=== PATIENT | female | born 1945 | race Caucasian/White ===

== ENCOUNTER 2018-12-21 07:52 | Emergency (ER) | payer MEDICARE, MEDICAID ==
[2018-12-21 07:59] VITALS: O2SAT 97
[2018-12-21 08:00] VITALS: BMI 31.9
--- NOTE | 2018-12-21 09:00 | ED PDOC ---
HPI: Skin/Bite Injury Time Seen by Provider: 12/21/18 08:25 Chief Complaint (Nursing): Abnormal Skin Integrity Chief Complaint (Provider): Lipoma History Per: Patient, Jack[place]oo (DEBBIE Trauma Therapist # [id number]) History/Exam Limitations: no limitations Onset/Duration Of Symptoms: Other (one month ) Current Symptoms Are (Timing): Still Present Severity: None Additional Complaint(s): 73 year old female with HTN and sinusitis presents to the ED for an evaluation of a lipoma located behind the right ear closer to the scalp onset for one months. Currently, she denies any pain to the area. Also denies fever, chills, discharge from the ear or any other complaints. PMD: Dr. Valentine (Non [facility] Provider) Past Medical History Reviewed: Historical Data, Nursing Documentation, Vital Signs Vital Signs: Last Vital Signs Temp 97.8 F 12/21/18 07:58 Pulse 61 12/21/18 07:58 Resp 18 12/21/18 07:58 BP 187/81 H 12/21/18 07:58 Pulse Ox 97 12/21/18 07:58 - Medical History PMH: HTN Other PMH: sinusitis - Surgical History Surgical History: No Surg Hx - Family History Family History: States: Unknown Family Hx - Social History Current smoker - smoking cessation education provided: No Alcohol: None Drugs: Denies - Allergies Allergies/Adverse Reactions: Allergies Allergy/AdvReac Type Severity Reaction Status Date / Time Penicillins Allergy RASH Verified 12/21/18 08:14 Review of Systems ROS Statement: Except As Marked, All Systems Reviewed And Found Negative Constitutional: Negative for: Fever, Chills ENT: Negative for: Ear Pain, Ear Discharge Musculoskeletal: Negative for: Neck Pain Skin: Positive for: Other (lipoma) Neurological: Negative for: Headache Physical Exam - Reviewed Nursing Documentation Reviewed: Yes Vital Signs Reviewed: Yes - Physical Exam Appears: Positive for: Well, Non-toxic, No Acute Distress Head Exam: Positive for: ATRAUMATIC, NORMAL INSPECTION, NORMOCEPHALIC Skin: Positive for: Warm, Dry. Negative for: Normal Color (lipoma located behind the right ear closer to the scalp - no abscess noted, no cellulitis) Eye Exam: Positive for: Normal appearance, EOMI, PERRL Neurological/Psych: Positive for: Awake, Alert, Normal Tone, Oriented (x3) - ECG O2 Sat by Pulse Oximetry: 97 (RA) Pulse Ox Interpretation: Normal Medical Decision Making Medical Decision Making: Upon provider reevaluation patient is feeling better, is medically stable, and requires no further treatment in the ED at this time. Patient will be discharged home. Counseling was provided and all questions were answered regarding diagnosis and need for follow up with non linear editor, Dr New. There is agreement to discharge plan. Return if symptoms persist or worsen. also noted htn, pt to follow up as an outpatient Scribe Attestation: Documented by Maciel Marin, acting as a scribe for Juan José Quintana MD. Provider Scribe Attestation: All medical record entries made by the Scribe were at my direction and personally dictated by me. I have reviewed the chart and agree that the record accurately reflects my personal performance of the history, physical exam, medical decision making, and the department course for this patient. I have also personally directed, reviewed, and agree with the discharge instructions and disposition. Disposition - Clinical Impression Clinical Impression: Lipoma, Hypertension - Patient ED Disposition Is Patient to be Admitted: No Counseled Patient/Family Regarding: Studies Performed, Diagnosis, Need For Followup - Disposition Disposition: Routine/Home Disposition Time: 08:52 Condition: IMPROVED Additional Instructions: follow up with non linear editor this week Dr New [address] [facility] [address] [place] [id number] return to the ED with any worsening or concerning symptoms Instructions: High Blood Pressure in Adults, Lipoma Forms: [employer] (Czech)
[2018-12-21 09:17] VITALS: BP 166/81; PULSE 62; RESP 16; TEMP 98
== END 2018-12-21 09:17 | disposition home or self-care (01) ==
LOC: H.ER 07:52
DX: D17.0 Benign lipomatous neoplasm of skin and subcutaneous tissue of head, face and neck (principal); I10 Essential (primary) hypertension; Z88.0 Allergy status to penicillin